=== PATIENT | male | born 1950 | race Caucasian/White ===

== ENCOUNTER 2018-06-04 11:37 | Emergency (ER) | payer MEDICARE, OTHER ==
[~2018-06-04] VITALS: Ht 185.4 cm; Wt 90.0 kg
[~2018-06-04 11:37] MED LIST: DICL100G15 TOP; GLIP5TAB13 PO
[2018-06-04 11:53] VITALS: BP 150/91
[2018-06-04] MEDS ORDERED: ketorolac tromethamine 15mg/ml inj. IM ONE (12:35)
[2018-06-04] MEDS ORDERED: orphenadrine citrate 60mg/2ml inj. IM ONE (12:35)
== END 2018-06-04 13:30 | disposition home or self-care (01) ==
LOC: ER 11:37
DX: M54.5 Low back pain (principal); Z98.890 Other specified postprocedural states; Z79.899 Other long term (current) drug therapy
CPT/HCPCS: 72100; 96372; 99284; J1885